=== PATIENT | female | born 1960 | race Caucasian/White ===

== ENCOUNTER 2016-08-04 13:23 | Emergency (ER) | payer OTHER ==
[~2016-08-04] VITALS: Ht 157.5 cm; Wt 66.7 kg
[~2016-08-04 13:23] MED LIST: AMBIEN10 M1 PO; ASPIRIN81 M4 PO; CYANOCOBAL1000 MCG/2 IM; GLIPIZIDE10 M2 PO; KOMBIGLYZE XR1 EAC2 PO; LEVOTHYROXINE112 MCG PO; LISINOPRIL10 M1 PO; LOVASTATIN20 M1 PO; METOPROLOL TART25 M1 PO; TRICOR48 M1 PO; VICODIN5-300 PO
[2016-08-04 14:15] LABS: ABSOLUTE BASOPHIL COUNT 0 /CUMM (0.0-0.2); ABSOLUTE EOSINOPHIL COUNT 0.1 /CUMM (0.0-0.7); ABSOLUTE LYMPH COUNT 3.9 /CUMM (1.2-3.4); ABSOLUTE MONOCYTE COUNT 0.5 /CUMM (0.10-0.60); BASOPHIL % 0.4 % (0.0-2.0); EOSINOPHIL % 1.3 % (0-5); GRANULOCYTE % 57.4 % (42.2-75.2); HEMATOCRIT 35.5 % (37-47); MEAN CORPUSCULAR HGB 27.9 PG (27.0-31.0); MEAN CORPUSCULAR HGB CONC 33.1 G/DL (33.0-37.0); MEAN CORPUSCULAR VOLUME 84.4 FL (81.0-99.0); MEAN PLATELET VOLUME 9.9 FL (7.4-10.4); PLATELET COUNT 196 /CUMM (130-400); RBC DISTRIBUTION WIDTH 12.7 % (11.5-14.5); RED BLOOD CELL CT 4.21 /CUMM (4.20-5.40); WHITE BLOOD CELL COUNT 10.5 /CUMM (4.8-10.8)
[2016-08-04] MEDS ORDERED: CHANTIX1 MG PO (14:27)
--- NOTE | 2016-08-04 14:34 | RADIOLOGY REPORT ---
EXAMINATION: XR PORTABLE CHEST CLINICAL INFORMATION: Chest pain COMPARISON: 01/22/2010 chest x-ray TECHNIQUE: Portable AP view of the chest was obtained. FINDINGS: Normal cardiomediastinal silhouette and pulmonary vascularity. Clear lungs. No pleural effusions or pneumothorax. The visualized bony thorax is unremarkable. IMPRESSION: No active cardiopulmonary finding.
--- NOTE | 2016-08-04 15:17 | ED CARDIAC/CP/PALPITATIONS ---
History of Present Illness General Chief Complaint: Chest Pain Stated Complaint: CHEST PRESSURE Source: patient, family, old records Exam Limitations: no limitations Vital Signs & Intake/Output Vital Signs & Intake/Output Vital Signs Date Time Temp Pulse Resp B/P Pulse O2 O2 Flow FiO2 Ox Delivery Rate 08/04 1525 97.9 83 18 142/70 98 Room Air 08/04 1348 Room Air 08/04 1328 97.3 80 16 146/82 95 Room Air Allergies Coded Allergies: venom-honey bee (BEE VENOM (HONEY BEE)) (Severe, ANAPHYLAXIS 08/24/15) Reconcile Medications Aspirin (Aspirin*) 81 MG TAB.CHEW 1 TAB PO DAILY HEART HEALTH (Reported) Cyanocobalamin (Vitamin B-12) (Cyanocobalamin Injection) 1,000 MCG/ML VIAL 1 ML IM QSUN SUPPLEMENT (Reported) Fenofibrate (Tricor) 48 MG TABLET 1 TAB PO DAILY CHOLESTEROL (Reported) Glipizide 10 MG TABLET 2 TAB PO BID DM (Reported) Levothyroxine Sodium 112 MCG TABLET 1 TAB PO DAILY AC THYROID (Reported) Lisinopril 10 MG TABLET 1 TAB PO DAILY HEART (Reported) Lovastatin 20 MG TABLET 1 TAB PO QPM CHOLESTEROL (Reported) Metoprolol Tartrate 25 MG TABLET 0.5 TAB PO BID HEART (Reported) Saxagliptin HCl/Metformin HCl (Kombiglyze XR 2.5-1,000 MG Tab) 2.5 MG-1,000 MG TBMP.24HR 1 TAB PO BID DIABETES (Reported) Varenicline Tartrate (Chantix) 1 MG TABLET 1 TAB PO DAILY SMOKING (Reported) Zolpidem Tartrate (Ambien) 10 MG TABLET 1 TAB PO QPMP PRN SLEEP (Reported) Core Measure Meds Pre-Hospital aspirin Triage Note: PT STATES SHE HAS CHEST PRESSURE THAT STARTED ABOUT 0900. PT STATES SHE TOOK ONE BABY ASA STATES THIS HAS HAPPEND TO HER BEFORE BUT IT DOESN'T LAST THIS LONG. PT DENIES SOB OR DIAPHORESIS. Triage Nurses Notes Reviewed? yes Onset: Morning Duration: hour(s):, constant, continues in ED Timing: recent history Quality/Severity: mild, dull, pressure Location: L chest Radiation: no radiation Activities at Onset: none Prior Chest Pain/Card Workup: cardiac cath, echocardiography, stress test Nitro Today/Relief: no nitro taken today Aspirin Today: 81 mg x 4, provided at home LMP (ages 10-50): post menopausal : No Patient currently breastfeeds: No HPI: 5 hours prior to admission patient complains of left-sided chest pain described as mild constant achy pressure nonradiating. She took 4 baby aspirin without change. She denies fever chills nausea vomiting diarrhea abdominal pain shortness of breath headache dysuria rash bleeding. Past History Travel History Traveled to [place] past 21 day No Medical History Any Pertinent Medical History? see below for history Cardiovascular: hypertension, hyperlipidemia, CARDIAC STENTS Endocrine: diabetes Surgical History Surgical History: non-contributory Psychosocial History Who do you live with Mother Services at Home None What is your primary language Luxembourgish Tobacco Use: Quit >30 days ago ETOH Use: occasional use Illicit Drug Use: denies illicit drug use Family History Hx Contributory? No Review of Systems Review of Systems Constitutional: Reports: no symptoms. EENTM: Reports: no symptoms. Respiratory: Reports: no symptoms. Cardiovascular: Reports: see HPI, chest pain. GI: Reports: no symptoms. Genitourinary: Reports: no symptoms. Musculoskeletal: Reports: no symptoms. Skin: Reports: no symptoms. Neurological/Psychological: Reports: no symptoms. Hematologic/Endocrine: Reports: no symptoms. Immunologic/Allergic: Reports: no symptoms. All Other Systems: Reviewed and Negative Physical Exam Physical Exam General Appearance: well developed/nourished, alert, awake, anxious, mild distress Head: atraumatic, normal appearance Eyes: Bilateral: normal appearance, PERRL, EOMI. Ears, Nose, Throat: normal pharynx, normal ENT inspection Neck: normal inspection, supple, full range of motion, no midline tenderness Respiratory: normal breath sounds, chest non-tender, no respiratory distress, quiet respiration, lungs clear Cardiovascular: regular rate/rhythm, normal peripheral pulses, norml femoral pulses equa Peripheral Pulses: 4+ carotid (R), 4+ carotid (L) Gastrointestinal: normal bowel sounds, soft, non-tender, no organomegaly Back: normal inspection, normal range of motion Extremities: normal inspection, normal capillary refill, normal range of motion, no edema Neurologic/Psych: no motor/sensory deficits, awake, alert, oriented x 3, normal gait, normal mood/affect, 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 Skin: intact, normal color, warm/dry Lymphatic: no anterior cervical luis alberto Core Measures ACS in differential dx? Yes ASA ordered for poss ACS? No-other contraindication (took at home) Severe Sepsis Present: No Septic Shock Present: No Progress Differential Diagnosis: AMI, costochondritis, hypovolemia, musculoskeletal pain, pneumonia Plan of Care: Orders Procedure Date/time Status Heart Healthy Diet 08/04 D Active TROPONIN LEVEL 08/04 1403 Complete COMPREHENSIVE METABOLIC PANEL 08/04 1403 Complete CBC WITHOUT DIFFERENTIAL 08/04 1403 Complete EKG 08/04 1324 Active Laboratory Tests 08/04/16 1405: Anion Gap 13, Estimated GFR > 60, BUN/Creatinine Ratio 34.0 H, Glucose 339 H, Calcium 10.1, Total Bilirubin 0.8, AST 30, ALT 41, Alkaline Phosphatase 68, Troponin I < 0.01, Total Protein 7.6, Albumin 4.3, Globulin 3.3, Albumin/ Globulin Ratio 1.3, CBC w Diff MAN DIFF ORDERED, RBC 4.21, MCV 84.4, MCH 27.9, RDW 12.7, MPV 9.9, Gran % 57.4, Lymphocytes % 36.6, Monocytes % 4.3, Eosinophils % 1.3, Basophils % 0.4, Absolute Granulocytes 6.0, Segmented Neutrophils 64, Band Neutrophils 1, Absolute Lymphocytes 3.9 H, Lymphocytes 30, Monocytes 2, Absolute Monocytes 0.5, Eosinophils 2, Absolute Eosinophils 0.1, Basophils 1, Absolute Basophils 0, Nucleated RBCs 1 H, Normocytic RBCs VERIFIED, Normochromic RBCs VERIFIED, PUBS MCHC 33.1 Diagnostic Imaging: Viewed by Me: Radiology Read. Discussed w/RAD: Radiology Read. Radiology Impression: no acute abnormality Initial ED EKG: normal axis, normal intervals, normal p-waves, normal QRS complex, normal sinus rhythm, no ST T wave changes Prior EKG: unchanged Rhythm Strip: normal sinus rhythm Departure Departure Time of Disposition: 1520 Disposition: HOME OR SELF CARE Condition: Stable Clinical Impression Primary Impression: Acute chest wall pain Secondary Impressions: Hyperglycemia without ketosis Referrals: JOSÉ MIGUEL GREER,AISLINN CARROLL MD,MALVIN Martines (PCP/Family) Additional Instructions: Tylenol or motrin as needed for pain Departure Forms: Customer Survey General Discharge Information Critical Care Note Critical Care Note Critical Care Time: non-applicable
[2016-08-04 15:25] VITALS: BP 142/70
== END 2016-08-04 15:26 ==
LOC: ERH 13:23
PROVIDERS: Emergency Medicine
DX: R07.89 Other chest pain (principal); E11.65 Type 2 diabetes mellitus with hyperglycemia
CPT/HCPCS: 93005; 93010; 96374; J1885